=== PATIENT | male | born 1990 | race Caucasian/White ===

== ENCOUNTER 2022-03-07 01:11 | Emergency (ER) | payer BC ==
[~2022-03-07] VITALS: Ht 177.8 cm; Wt 90.9 kg
[~2022-03-07 01:11] MED LIST: NO HOME MEDICATIONS
[2022-03-07 01:14] VITALS: TEMP 98.6
[2022-03-07] MEDS ORDERED: EPIPEN 2-PAK1 MG/ML IM (02:01)
[2022-03-07 02:05] VITALS: BP 126/78; PULSE 90
== END 2022-03-07 02:05 | disposition home or self-care (01) ==
LOC: COL.ER 01:11
DX: T78.2XXA Anaphylactic shock, unspecified, initial encounter (principal); Z99.81 Dependence on supplemental oxygen; Z28.310 Unvaccinated for COVID-19
CPT/HCPCS: J2930